=== PATIENT | female | born 1970 | race African-American/Black ===

== ENCOUNTER 2017-02-20 09:14 | Emergency (ER) | payer OTHER, MEDICAID ==
[~2017-02-20] VITALS: Ht 167.6 cm; Wt 59.0 kg
[2017-02-20] MEDS ORDERED: CLOP75TA16 PO (09:27)
[2017-02-20] MEDS ORDERED: SODIUM CHLORIDE 0.9% 1,000 ML IV ONE (09:32)
[2017-02-20] MEDS ORDERED: MORPHINE SULFATE 4 MG/ML CPJ (NOT FOR IM USE) IV STA (09:32)
[2017-02-20] MEDS ORDERED: ONDANSETRON HCL 4MG/2ML VIAL IV STA (09:32)
[2017-02-20] MEDS ORDERED: ASPIRIN 81MG TABLET PO STA (09:58)
[2017-02-20] MEDS ORDERED: NITROGLYCERIN OINT 1GM/INCH UDPKT TD STA (09:58)
[2017-02-20] MEDS ORDERED: MORPHINE SULFATE 10 MG/ML CPJ IV STA (10:09)
[2017-02-20 10:14] LABS: BASOPHILS % 0.4 % (0.0-2.0); EOSINOPHILS % 1.5 % (0.0-5.0); LYMPHOCYTES % 24.1 % (20.0-50.0); MEAN CORPUSCULAR HEMOGLOBIN 29.8 pg (28.0-32.0); MEAN CORPUSCULAR VOLUME 89.2 fL (81.0-99.0); MEAN PLATELET VOLUME 8.2 fl (7.4-10.4); MONOCYTES % 6.1 % (2.0-8.0); NEUTROPHILS % 67.9 % (40.0-76.0); PLATELET 140 x1000/uL (130-400); RED BLOOD CELL COUNT 4.37 mill/uL (4.2-5.4); RED CELL DISTRIBUTION WIDTH 13.2 % (11.6-14.6)
[2017-02-20 10:23] LABS: PARTIAL THROMBOPLASTIN TIME 23.6 sec (23.4-31.0); PROTHROMBIN TIME 10.3 sec (9.4-11.6)
[2017-02-20 10:31] LABS: CARBON DIOXIDE 29 mEq/L (21-32); CHLORIDE 107 mEq/L (98-107); CREATINE KINASE 54 IU/L (26-192); CREATINE KINASE MB FRACTION 0.6 ng/mL (0.5-3.6); ETHANOL BLOOD < 10 mg/dL; TROPONIN I < 0.02 ng/mL (0.00-0.04)
[2017-02-20 10:42] LABS: HCG SCREEN NEGATIVE
[2017-02-20 11:08] LABS: CLARITY URINE CLEAR (CLEAR); COLOR URINE YELLOW (YELLOW); KETONES URINE NEGATIVE (NEGATIVE); LEUKOCYTE ESTERASE URINE TRACE (NEGATIVE); NITRITE URINE NEGATIVE (NEGATIVE); OCCULT BLOOD URINE NEGATIVE (NEGATIVE); PH URINE 5.5 (4.5-8.0); PROTEIN URINE NEGATIVE (NEGATIVE); SPECIFIC GRAVITY URINE 1.024 (1.005-1.030); UROBILINOGEN URINE 0.2 E.U./dL (0.2-1.0)
[2017-02-20] MEDS ORDERED: ENOXAPARIN 60MG/0.6ML SYR SUBCUT ONE (11:15)
[2017-02-20 11:32] LABS: *AMPHETAMINES SCREEN URINE NEGATIVE (NEGATIVE); *BARBITURATES SCREEN URINE NEGATIVE (NEGATIVE); *BENZODIAZEPINES SCREEN URINE NEGATIVE (NEGATIVE); *COCAINE SCREEN URINE NEGATIVE (NEGATIVE); METHADONE URINE SCREEN NEGATIVE (NEGATIVE); OPIATES URINE SCREEN NEGATIVE (NEGATIVE); PHENCYCLIDINE URINE SCREEN NEGATIVE (NEGATIVE)
[2017-02-20 11:41] LABS: CANNABINOID URINE SCREEN PRESUMTIVE POSITIVE (NEGATIVE)
[2017-02-20 12:14] VITALS: BP 124/65
== END 2017-02-20 12:19 | disposition short-term general hospital (02) ==
LOC: ER 09:30
DX: R07.89 Other chest pain (principal); I11.9 Hypertensive heart disease without heart failure; F12.10 Cannabis abuse, uncomplicated; F41.9 Anxiety disorder, unspecified; I25.2 Old myocardial infarction; M79.7 Fibromyalgia; D72.819 Decreased white blood cell count, unspecified; Z95.5 Presence of coronary angioplasty implant and graft
CPT/HCPCS: 36415; 71010; 80053; 80305; 81001; 82550; 82553; 83690; 84484; 84703; 85025; 85610; 85730; 93005; 96361; 96372; 96374; 96375; 96376; 99291; G0482; J1650; J2270; J2405; J7030; Z7610